=== PATIENT | male | born 1970 | race Caucasian/White ===

== ENCOUNTER 2021-01-03 08:55 | Outpatient (CLI) | payer OTHER ==
[2021-01-03 09:44] LABS: Estimated GFR-MDRD - POC Greater than 90
[2021-01-03] MEDS ORDERED: Magnevist 469MG/ML 20 ML VIAL ONE (14:10)
== END 2021-01-03 08:56 | disposition home or self-care (01) ==
LOC: BICMRI 08:55
PROVIDERS: ATTEND Internal Medicine
DX: K76.9 Liver disease, unspecified (principal); R94.5 Abnormal results of liver function studies; D35.02 Benign neoplasm of left adrenal gland
CPT/HCPCS: 74183; 82565; A9579